=== PATIENT | male | born 1960 | race Caucasian/White ===

== ENCOUNTER 2024-02-22 16:28 | Inpatient (IN) | payer OTHER, SELFPAY ==
[2024-02-22 11:15] VITALS: BP 116/85; BMI 30.4
[2024-02-22 11:34] LABS: % Basophils 0.6 % (0-2); % Eosinophils 1.1 % (0-6); % Immature Granulocytes 0.4 % (0-0.5); % Lymphocytes 15.5 % (20.5-51.1); % Monocytes 18.3 % (1.7-9.3); % Neutrophils 64.1 % (42.2-75.2); Absolute Basophils 0.1 10^3/uL (0-0.2); Absolute Eosinophils 0.1 10^3/uL (0-0.7); Absolute Lymphocytes 1.6 10^3/uL (1.2-3.4); Absolute Monocytes 1.9 10^3/uL (0.1-0.6); Absolute Neutrophils 6.6 10^3/uL (1.4-6.5); Hematocrit 46.5 % (39.0-52.0); Hemoglobin 16.1 g/dL (13.0-18.0); Mean Corp Hgb Conc. 34.6 g/dL (33.0-37.0); Mean Corpuscular Volume 89.4 fL (80.0-94.0); Mean Platelet Volume 10.2 fL (7.4-10.4); Nucleated Red Blood Cells % 0 % (-); Platelet Count 300 10^3/uL (130-400); Red Cell Dist. Width 12.1 % (11.5-14.5); White Blood Cell Count 10.3 10^3/uL (4.8-10.8)
[2024-02-22] MEDS: NSS 1000 IV ×3 (12:11→18:43)
[2024-02-22 12:16] LABS: ALT (SGPT) 95 U/L (0-50); AST (SGOT) 48 U/L (17-59); Albumin 4.7 g/dl (3.5-5.0); Alkaline Phosphatase 67 U/L (38-126); Blood Urea Nitrogen 45 mg/dl (9-20); Calcium 10.2 mg/dl (8.4-10.2); Carbon Dioxide 21 mmol/L (22-30); Chloride 102 mmol/L (98-107); Estimated Creatinine Clearance 37 ml/min; Glucose 117 mg/dl (70-99); Lipase 393 U/L (23-300); Potassium 4.3 mmol/L (3.5-5.1); Sodium 137 mmol/L (135-145); Total Bilirubin 0.9 mg/dl (0.2-1.3); eGFR 29.21
--- NOTE | 2024-02-22 13:10 | ED.GENMED ---
History of Present Illness
General
Chief Complaint: Abdominal Symptoms
Source: patient
Exam Limitations: none
Time Seen by Provider: 02/22/24 12:32
History of Present Illness
History of Present Illness:
63-year-old male otherwise healthy presents with fatigue fevers diarrhea and dry heaves over the past 5 days. He notes he has watery stools several times a day. Is brown in color. He is developing a hemorrhoid and noticed some red blood on the
tissue when he wiped himself. He has a history of kidney stones. He does note right-sided back comfort. No known sick contacts. No other complaints at this time.
Past History
Past History
ED Past Medical History: HTN and Other (kidney stones)
Social History
Tobacco: Non-smoker
Personal:
Living: with family
Employment: Employed
Phy Exam
Physical Exam
Physical Exam:
General: Well appearing male, NAD
HEENT: NC/AT
Heart: RRR
Lungs: CTA bilaterally
ABd: soft, mildly tender to right flank
Ext: No cyanosis or edema
Skin: Warm no rashes
Course
Orders/Labs/Results
Orders:
Orders
02/22/24 11:18
Urine Culture Urgent
AZALIA Source: U
Specimen Description:
Date Specimen was Collected: 02/22/24
Time Specimen was Collected: 11:18
02/22/24 11:23
Complete Blood Count/With Diff Urgent
Comprehensive Metabolic Panel Urgent
Creatine Phosphokinase Urgent
Lipase Urgent
02/22/24 12:11
0.9% Sodium Chloride 1000 ml [Nss] 1,000 ml IV BOLUS
02/22/24 12:46
0.9% Sodium Chloride 1000 ml [Nss] 1,000 ml IV BOLUS
02/22/24 12:49
CT Abd/pel Without Iv Or Oral Urgent
Comment:
Reason For Exam: right flank pain
02/22/24 13:11
Add On- LAB Urgent
Tests Added?: CPK
02/22/24 14:30
Ampicillin/Sulbactam 3 grams IVPB NOW Ampicillin/Sulbactam 3 G [Unasyn] 3 gm 0.9% Sodium Chloride 100 ml [Nss] 100 ml IV NOW
Abnormal Lab Results
02/22/24
11:23
Absolute Neuts (auto) 6.6 H 10^3/uL
(1.4-6.5)
Absolute Monos (auto) 1.9 H 10^3/uL
(0.1-0.6)
Lymphocytes % 15.5 L %
(20.5-51.1)
Monocytes % 18.3 H %
(1.7-9.3)
Carbon Dioxide 21 L mmol/L
(22-30)
BUN 45 H mg/dl
(9-20)
Creatinine 2.4 H mg/dL
(0.7-1.3)
Glucose 117 H mg/dl
(70-99)
ALT 95 H U/L
(0-50)
Lipase 393 H U/L
(23-300)
02/22/24 11:23
02/22/24 11:23
Vital Signs
Initial and Last Documented VS:
Initial Vital Signs
Temp Pulse Resp BP Pulse Ox
98.4 F 91 16 116/85 99
02/22/24 11:15 02/22/24 11:15 02/22/24 11:15 02/22/24 11:15 02/22/24 11:15
Last Documented Vital Signs
Temp Pulse Resp BP Pulse Ox
98.4 F 91 16 116/85 93
02/22/24 11:15 02/22/24 11:15 02/22/24 11:15 02/22/24 11:15 02/22/24 12:15
MDM/Problems Addressed
Differential Diagnosis Includes:
Fatigue diarrhea with fever. Question viral illness versus electrolyte abnormality versus dehydration patient does have some right flank pain with history of kidney stones. Will check CT scan without contrast to evaluate for flank pain.
Review of labs demonstrates acute kidney injury. Creatinine today is 2.4 most recent study was in 2016 which demonstrated creatinine 1.1. Suspect likely prerenal source given the copious amounts of diarrhea he describes but CT pending to evaluate
for obstructive uropathy.
Patient will receive 2 L of fluid.
*Critical Care Note
Total Time (30-74mins, 75-104mins- exclusive of procedures): Not Applicable
Update Note
Update Note:
Patient reevaluated. Patient has acute kidney injury with a creatinine of 2.4. CT was ordered and demonstrates diverticulitis of the descending colon. Patient was hypotensive at urgent care prior to arrival here. He was given 2 L of fluid Unasyn
ordered and will admit to [facility] for diverticulitis, acute kidney injury and dehydration
ED Attending Note
-
Portions of this chart may have been created with voice recognition software.� Occasional wrong word or��sound alike� substitutions may have occurred due to the inherent limitations of voice recognition software.
Discharge Plan
Departure
Patient Disposition: Admit
Date of Disposition: 02/22/24
Time of Disposition: 14:31
Admit to: Med/Surg
Presentation/result/management discussed w/ accepting MD/DO: Hospitalist
Discharge Problem:
Diverticulitis, MONALISA (acute kidney injury)
Prescriptions:
No Action
lisinopril 10 mg Tablet
10 mg PO DAILY
ibuprofen [Advil] 200 mg Tablet
400 mg PO DAILY
rosuvastatin [Crestor] 10 mg Tablet
10 mg PO DAILY
Referrals:
Nick Stacy MD [Family Provider] -
Interventions
Interventions:
*Risk Screen - Suicide Last Done: 02/22/24 11:15
*General Assessment Last Done: 02/22/24 12:11
*Neglect/Abuse Screening Last Done: 02/22/24 11:15
ED- Fall Risk Assessment Last Done: 02/22/24 12:11
*ED COVID-19 Vaccine History Last Done: 02/22/24 12:11
OY-Spqqdp-Xnazatpthe Assessment Last Done: 02/22/24 12:11
Discharge Date and Time
Print Language: YI
[2024-02-22] MEDS: NSS IV (13:29)
[2024-02-22 14:31] LABS: Creatine Phosphokinase 62 U/L (55-170)
[2024-02-22] MEDS: UNASYN IV ×2 (15:23→22:03)
--- NOTE | 2024-02-22 16:03 | W.PN.HOSP.TC ---
Today's Communication/Plan
-
empiric abx
stool studies
aggressive IVF
Assessment / Plan
Assessment / Plan
Acute onset of diarrhea, with recurrent vomiting Friday 02/16 evening.
Pt had Tacos with chicken 3-4 hours prior to onset, but had same meal and had no issue. Over course of next 5 days symptoms persisted, he became weaker and was unable to eat
MONALISA
most likely prerenal azotemia due to diarrhea and decreased oral intake
CT scan with mild diverticulitis
1. Mild acute uncomplicated diverticulitis of the mid descending colon.
2. Normal appendix.
3. No obstructing urinary calculi or hydronephrosis.
4. Mild fusiform aneurysmal dilatation of the infrarenal abdominal aorta measuring up to 3.2 cm.
Hx of renal lithiasis
P:IVF
empiric abx
stool studies
full code
see dictated note
Anticipated Discharge: 24 - 48 hours
Subjective/Interval History
-
Date of Service: February 22, 2024
Diarrhea, fevers, weakness worsening since onset Sunday evening, 02/16
Objective Data
-
Labs:
Laboratory Results
02/22/24
11:23
WBC 10.3
Hgb 16.1
Hct 46.5
Plt Count 300
Sodium 137
Potassium 4.3
Chloride 102
Carbon Dioxide 21 L
BUN 45 H
Creatinine 2.4 H
Glucose 117 H
Calcium 10.2
Total Bilirubin 0.9
AST 48
ALT 95 H
Alkaline Phosphatase 67
Vital Signs:
Vital Signs
Temp Pulse Resp BP Pulse Ox
98.4 F 91 16 116/85 93
02/22/24 11:15 02/22/24 11:15 02/22/24 11:15 02/22/24 11:15 02/22/24 12:15
Review of Systems
-
History Source: Patient and Family ( at bedside)
Constitutional: Denies Fever
EENT: Reports No Symptoms Reported
Respiratory: Reports No Symptoms
Cardiac: Reports No Symptoms
Abdomen/GI: Reports Nausea, Vomiting, Diarrhea and Other (hemorhoidal bleed)
Physical Exam
-
General: Well Developed, Well Nourished and No Apparent Distress
HEENT: Normocephalic, Atraumatic and Moist Mucous Membranes
Respiratory: Clear to Auscultation; Negative Wheezes, Rales or Rhonchi
Cardiac: Regular Rhythm and S1/S2
GI: Nontender and Nondistended
Musculoskeletal: No Clubbing, No Cyanosis and No Edema
Skin: Warm and Dry
Neuro: Awake, Alert and Oriented
Psych: Calm and Intact Judgement/Insight
[2024-02-22 18:12] VITALS: BP 136/81
[2024-02-22 18:23] VITALS: BP 141/83
[2024-02-22 18:24] VITALS: BMI 28.5
[2024-02-22] MEDS: HEPARIN 5000 UNITS SC (22:03)
[2024-02-22 23:00] VITALS: BP 115/66
[2024-02-23] MEDS: UNASYN IV ×4 (03:46→20:51)
[2024-02-23] MEDS: NSS 1000 IV ×2 (03:46→13:46)
[2024-02-23 06:00] VITALS: BMI 28.6
[2024-02-23 07:03] VITALS: BP 118/70
[2024-02-23 07:04] LABS: % Basophils 0.3 % (0-2); % Eosinophils 1.4 % (0-6); % Immature Granulocytes 0.5 % (0-0.5); % Lymphocytes 21.4 % (20.5-51.1); % Monocytes 16.5 % (1.7-9.3); % Neutrophils 59.9 % (42.2-75.2); Absolute Eosinophils 0.1 10^3/uL (0-0.7); Absolute Lymphocytes 1.4 10^3/uL (1.2-3.4); Absolute Monocytes 1.1 10^3/uL (0.1-0.6); Hematocrit 35.3 % (39.0-52.0); Mean Corp Hgb Conc. 34.8 g/dL (33.0-37.0); Mean Corpuscular Hgb 31.1 pg (27.0-31.0); Mean Corpuscular Volume 89.1 fL (80.0-94.0); Mean Platelet Volume 10.3 fL (7.4-10.4); Nucleated Red Blood Cells % 0 % (-); Platelet Count 198 10^3/uL (130-400); Red Blood Cell Count 3.96 10^6/uL (4.70-6.10); White Blood Cell Count 6.7 10^3/uL (4.8-10.8)
[2024-02-23 07:18] LABS: Blood Urea Nitrogen 26 mg/dl (9-20); Calcium 8.2 mg/dl (8.4-10.2); Carbon Dioxide 20 mmol/L (22-30); Chloride 112 mmol/L (98-107); Estimated Creatinine Clearance 78 ml/min; Glucose 81 mg/dl (70-99); Lipase 365 U/L (23-300); Potassium 3.8 mmol/L (3.5-5.1); Sodium 138 mmol/L (135-145); eGFR > 60.00
[2024-02-23] MEDS: HEPARIN 5000 UNITS SC ×2 (08:26→20:51)
[2024-02-23 08:29] LABS: Hemoglobin 12.3 g/dL (13.0-18.0)
--- NOTE | 2024-02-23 08:51 | W.PN.HOSP.TC ---
Today's Communication/Plan
-
GI consult
slow IVF
Fe studies, check labs
Assessment / Plan
Assessment / Plan
Acute onset of diarrhea, with recurrent vomiting Friday 02/16 evening.
Pt had Tacos with chicken 3-4 hours prior to onset, but had same meal and had no issue. Over course of next 5 days symptoms persisted, he became weaker and was unable to eat.
Still no appetite, but nausea has resolved. Symptoms are more consistent with enteric pathogen than acute diverticulitis, but would like to have input from GI
MONALISA
most likely prerenal azotemia due to diarrhea and decreased oral intake
markedly improved with IVF past 24 hrs. BUN/Creat 45/2.4-->26/1.0
will slow IVF and recheck tomorrow
Drop in Hgb 16.1-->12.3
most likely dilutional, but will recheck in AM and request GI input. Check Fe studies
Mild elevated Lipase
393-->365. Will follow
CT scan with mild diverticulitis
1. Mild acute uncomplicated diverticulitis of the mid descending colon.
2. Normal appendix.
3. No obstructing urinary calculi or hydronephrosis.
4. Mild fusiform aneurysmal dilatation of the infrarenal abdominal aorta measuring up to 3.2 cm.
Hx of renal lithiasis
P:slow IVF
empiric abx
stool studies still pending. C.Diff negative
full code
Anticipated Discharge: 24 - 48 hours
Subjective/Interval History
-
Date of Service: February 23, 2024
Still with diarrhea, no appetite, but is not nauseous this morning
Objective Data
-
Labs:
Laboratory Results
02/23/24
05:58
WBC 6.7
Hgb 12.3 L D
Hct 35.3 L
Plt Count 198 D
Sodium 138
Potassium 3.8
Chloride 112 H
Carbon Dioxide 20 L
BUN 26 H
Creatinine 1.0
Glucose 81
Calcium 8.2 L D
Vital Signs:
Vital Signs
Temp Pulse Resp BP Pulse Ox
98.1 F 69 18 118/70 97
02/23/24 07:03 02/23/24 07:03 02/23/24 07:03 02/23/24 07:03 02/23/24 07:03
I&O
02/22/24 02/23/24 02/24/24
06:59 06:59 06:59
Intake Total 1959
Balance 1959
Review of Systems
-
History Source: Patient and Coordinated Provider
Constitutional: Denies Fever (fever, chills at onset of symptoms, none currently)
EENT: Reports No Symptoms Reported
Respiratory: Reports No Symptoms
Cardiac: Reports No Symptoms
Abdomen/GI: Reports Diarrhea and Other (hemorhoidal bleed); Denies Nausea (resolved, but no appetite) or Vomiting (resolved)
Physical Exam
-
General: Well Developed, Well Nourished and No Apparent Distress
HEENT: Normocephalic, Atraumatic and Moist Mucous Membranes
Respiratory: Clear to Auscultation; Negative Wheezes, Rales or Rhonchi
Cardiac: Regular Rhythm and S1/S2
GI: Nontender and Nondistended
Musculoskeletal: No Clubbing, No Cyanosis and No Edema
Skin: Warm and Dry
Neuro: Awake, Alert and Oriented
Psych: Calm and Intact Judgement/Insight
--- NOTE | 2024-02-23 11:20 | CON.GI ---
Addendum entered and electronically signed by Lai Pinedo MD 02/23/24 13:48:
I saw and examined the patient.
The PA's note was reviewed and I agree with the note.
Comment:
63 year old male with HTN, kidney stones, and h/o diverticulitis who p/w diarrhea and abdominal pain.
Impression / Rec:
1. Diarrhea - acute, had associated nausea w/o vomiting and chills/sweats but unknown if he actually had objective fever. No sick contacts, recent travel or antibiotics. Had pre-renal MONALISA from diarrhea which has resolved with IVF. CT abd/pel w/o
IV or oral contrast showed mild acute uncomplicated diverticulitis in the mid descending colon. C. diff -ve, other stool tests pending. Last colonoscopy was in 2020. Pt's history is most consistent with infectious diarrhea, although no other
family are having same symptoms. On Abx, feeling better/diarrhea slowing down. Follow stool studies and continue with abx for now.
Original Note:
Consultation
-
Date/Time Consultation Requested: 02/23/24 0857
Date/Time Consultation Performed: 02/23/24 1120
Requesting Provider: Dr Briceno
Performing Provider: Dr Pinedo / Yamilet Eduardo PA-C
Reason for Consultation: diverticulitis
Medical History
Chief Complaint / HPI
Chief Complaint: abdominal pain, diarrhea
History of Present Illness:
This is a 63 year old male with a past medical history of HTN, kidney stones, and diverticulitis who presents for diarrhea and abdominal pain for the past 6 days. He had chills and sweats but did not check his temperature. No sick contacts, recent
travel or antibiotics. The diarrhea was watery, brown, occurring multiple times a day. Pain was felt 'all over' but worse in the right lower quadrant. He states he felt like he was developing a hemorrhoid and saw small amounts of blood on the toilet
paper with wiping. +weakness and nausea, no vomiting. On arrival to ER, labs showed elevated BUN and creatinine (45 and 2.4). CT abdomen/pelvis showed normal appendix and a mild acute uncomplicated diverticulitis in the mid descending colon. He was
started on antibiotics (Unasyn) and given IV fluids and patient reports he is feeling better today. He has had diverticulitis in the past and has required hospitalization for this but never surgery in the past. He cannot recall exactly but states
his last episode of diverticulitis was ~7 years ago. This does feel somewhat different to him than previous episodes of diverticulitis. He had a colonoscopy in [address] Oliveira which showed diverticulosis in the entire colon, internal hemorrhoids
and a small rectal hyperplastic polyp. There is no family history of colon cancer.
Today's labs reviewed: WBC 6.7, Hgb 12.3, MCV 89.1, platelets 198, BUN 26, creatinine 1.0 (kidney function improved from yesterday). Stool studies are negative for C diff, remaining stool cultures pending.
Past Medical History
Past Medical History: HTN and Other (kidney stones, diverticulitis)
Past Surgical History: None
Social History
Tobacco: Non-Smoker
Alcohol: Occasional (6 beers/week)
Drug: None
Personal:
Living: With Family
Employment: Employed
Family History
Family History: Reviewed & Not Pertinent (no family history of GI malignancies or IBD)
Allergies / Home Medications
Allergy/AdvReac Type Severity Reaction Status Date / Time
No Known Allergies Allergy Verified 02/22/24 11:17
�Medication �Instructions �Recorded
ibuprofen 200 mg tablet (Advil) 400 mg PO DAILY 02/22/24
lisinopril 10 mg tablet 10 mg PO DAILY 02/22/24
rosuvastatin 10 mg tablet 10 mg PO DAILY 02/22/24
Review of Systems
-
History Source: Patient
All other systems: A 12 pt ROS was Negative except as stated above in HPI
Vital Signs
Temp Pulse Resp BP Pulse Ox
98.1 F 69 18 118/70 97
02/23/24 07:03 02/23/24 07:03 02/23/24 07:03 02/23/24 07:03 02/23/24 07:03
Physical Exam
Exam
General: Well Developed, Well Nourished and No Apparent Distress
Respiratory: Clear
Cardiac: Regular Rhythm
GI: Soft, Non Tender, Non Distended and Normal Bowel Sounds
Skin: Warm and Dry
Neuro: AO x 3
Psych: Calm
Results
WBC 6.7 10^3/uL (4.8-10.8) 02/23/24 05:58
Hgb 12.3 g/dL (13.0-18.0) L D 02/23/24 05:58
Hct 35.3 % (39.0-52.0) L 02/23/24 05:58
MCV 89.1 fL (80.0-94.0) 02/23/24 05:58
Plt Count 198 10^3/uL (130-400) D 02/23/24 05:58
Absolute Neuts (auto) 4.0 10^3/uL (1.4-6.5) 02/23/24 05:58
Sodium 138 mmol/L (135-145) 02/23/24 05:58
Potassium 3.8 mmol/L (3.5-5.1) 02/23/24 05:58
Chloride 112 mmol/L (98-107) H 02/23/24 05:58
Carbon Dioxide 20 mmol/L (22-30) L 02/23/24 05:58
BUN 26 mg/dl (9-20) H 02/23/24 05:58
Creatinine 1.0 mg/dL (0.7-1.3) 02/23/24 05:58
Calcium 8.2 mg/dl (8.4-10.2) L D 02/23/24 05:58
Total Bilirubin 0.9 mg/dl (0.2-1.3) 02/22/24 11:23
AST 48 U/L (17-59) 02/22/24 11:23
ALT 95 U/L (0-50) H 02/22/24 11:23
Alkaline Phosphatase 67 U/L (38-126) 02/22/24 11:23
Lipase 365 U/L (23-300) H 02/23/24 05:58
Diagnostic Image Results:
CT Abdomen/Pelvis 02/22/24:
1. Mild acute uncomplicated diverticulitis of the mid descending colon.
2. Normal appendix.
3. No obstructing urinary calculi or hydronephrosis.
4. Mild fusiform aneurysmal dilatation of the infrarenal abdominal aorta measuring up to 3.2 cm.
Prior GI Procedures:
EGD:
Colonoscopy:
06/20/21, Dr. Oliveira
Diverticulosis in the entire examined colon.
- Internal hemorrhoids.
- One diminutive polyp in the rectum, removed with a
jumbo cold forceps. Resected and retrieved. PATH: Hyperplastic polyp.
Assessment / Plan
-
63 year old male with HTN, kidney stones, and diverticulitis who presents for diarrhea and abdominal pain for the past 6 days. He had chills and sweats but did not check his temperature. No sick contacts, recent travel or antibiotics. The diarrhea
was watery, brown, occurring multiple times a day. Pain was felt 'all over' but worse in the right lower quadrant. He states he felt like he was developing a hemorrhoid and saw small amounts of blood on the toilet paper with wiping. +weakness and
nausea, no vomiting. On arrival to ER, labs showed elevated BUN and creatinine (45 and 2.4). CT abdomen/pelvis showed normal appendix and a mild acute uncomplicated diverticulitis in the mid descending colon. He was started on antibiotics (Unasyn)
and given IV fluids and patient reports he is feeling better today. He has had diverticulitis in the past and has required hospitalization for this but never surgery in the past. He cannot recall exactly but states his last episode of diverticulitis
was ~7 years ago. This does feel somewhat different to him than previous episodes of diverticulitis. He had a colonoscopy in [address] Oliveira which showed diverticulosis in the entire colon, internal hemorrhoids and a small rectal hyperplastic
polyp. There is no family history of colon cancer.
Today's labs reviewed: WBC 6.7, Hgb 12.3, MCV 89.1, platelets 198, BUN 26, creatinine 1.0 (kidney function improved from yesterday). Stool studies are negative for C diff, remaining stool cultures pending.
IMPRESSION / PLAN:
Acute diverticulitis, mild/uncomplicated
- continue IV antibiotics (Unasyn)
- continue IV fluids
- analgesics, antiemetics PRN, per hospitalist
- outpatient follow-up with Dr. Oliveira
Diarrhea, rule out infectious etiology
- C difficile negative
- remaining stool cultures pending
-
-
Thank you for consultation and allowing me to participate in the patient's care. Please call the rn liaison GI physician during the after hours with any questions or concerns.
--- NOTE | 2024-02-23 13:57 | CM ---
Reviewed chart, met with patient to obtain information for assessment. Patient stated that he lives in a two story home with his . There are two steps to enter. He described himself as independent with his ADLS and personal care, dressing,
bathing and toileting. He ambulates without use of an assistive device. 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 He drives and can get himself to his appointments and do all of his own shopping. Patient is still
working.
He denied any DME in his home.
He has never had VN services.
He has not been to a SNF.
Patient has a prescription plan and uses [facility] in [place] for all of his medications.
His PCP is, Nick Stacy.
Patient stated that he feels that he is at his baseline level of functioning and confirmed that he is feeling a lot better. He stated that his will transport home when he is cleared for discharge.
Plan: Case management will continue to follow and assist with discharge planning. Home with when stable medically.
[2024-02-23 15:13] VITALS: BP 132/83
[2024-02-23 23:00] VITALS: BP 143/94
[2024-02-24] MEDS: NSS 1000 IV (00:04)
[2024-02-24] MEDS: UNASYN IV ×2 (05:16→10:02)
[2024-02-24 06:00] VITALS: BMI 28.9
[2024-02-24 06:42] LABS: % Basophils 0.3 % (0-2); % Eosinophils 2.2 % (0-6); % Immature Granulocytes 0.4 % (0-0.5); % Lymphocytes 22.6 % (20.5-51.1); % Monocytes 9.8 % (1.7-9.3); % Neutrophils 64.7 % (42.2-75.2); Absolute Eosinophils 0.2 10^3/uL (0-0.7); Absolute Lymphocytes 1.6 10^3/uL (1.2-3.4); Absolute Monocytes 0.7 10^3/uL (0.1-0.6); Absolute Neutrophils 4.4 10^3/uL (1.4-6.5); Hematocrit 32.4 % (39.0-52.0); Hemoglobin 11.6 g/dL (13.0-18.0); Mean Corp Hgb Conc. 35.8 g/dL (33.0-37.0); Mean Corpuscular Hgb 30.8 pg (27.0-31.0); Mean Corpuscular Volume 85.9 fL (80.0-94.0); Mean Platelet Volume 10.3 fL (7.4-10.4); Nucleated Red Blood Cells % 0 % (-); Platelet Count 215 10^3/uL (130-400); Red Blood Cell Count 3.77 10^6/uL (4.70-6.10); Red Cell Dist. Width 11.8 % (11.5-14.5); White Blood Cell Count 6.9 10^3/uL (4.8-10.8)
[2024-02-24 07:00] VITALS: BP 140/92
[2024-02-24 07:13] LABS: Blood Urea Nitrogen 15 mg/dl (9-20); Calcium 8.3 mg/dl (8.4-10.2); Carbon Dioxide 22 mmol/L (22-30); Chloride 111 mmol/L (98-107); Estimated Creatinine Clearance 87 ml/min; Glucose 82 mg/dl (70-99); Iron 101 ug/dl (49-181); Lipase 247 U/L (23-300); Magnesium 1.9 mg/dl (1.6-2.3); Potassium 3.5 mmol/L (3.5-5.1); Sodium 139 mmol/L (135-145); eGFR > 60.00
[2024-02-24 07:23] LABS: Percent Saturation 45 % (20-50); Total Iron Binding Capacity 220 ug/dl (261-462)
[2024-02-24 08:12] LABS: Vitamin B12 697 pg/ml (239-931)
[2024-02-24] MEDS: HEPARIN 5000 UNITS SC (08:20)
--- NOTE | 2024-02-24 10:19 | W.PN.HOSP.TC ---
Today's Communication/Plan
-
dc to home
Assessment / Plan
Assessment / Plan
Acute onset of diarrhea, with recurrent vomiting Friday 02/16 evening.
Pt had Tacos with chicken 3-4 hours prior to onset, but had same meal and had no issue. Over course of next 5 days symptoms persisted, he became weaker and was unable to eat.
appetite back to normal, but nausea has resolved. Symptoms are more consistent with enteric pathogen than acute diverticulitis, but would like to have input from GI
MONALISA
most likely prerenal azotemia due to diarrhea and decreased oral intake
markedly improved with IVF past 24 hrs. BUN/Creat 45/2.4-->26/1.0
will slow IVF and recheck tomorrow
Drop in Hgb 16.1-->12.3-->11.6
most likely dilutional, but will recheck in AM and request GI input. Check Fe studies
Mild elevated Lipase
393-->365-->247. Will follow
CT scan with mild diverticulitis
1. Mild acute uncomplicated diverticulitis of the mid descending colon.
2. Normal appendix.
3. No obstructing urinary calculi or hydronephrosis.
4. Mild fusiform aneurysmal dilatation of the infrarenal abdominal aorta measuring up to 3.2 cm.
Hx of renal lithiasis
P:reviewed with Dr. Pinedo
empiric abx
stool WBC neg C.Diff negative
dc to home
see dictated note
full code
More than 30 minutes spent in discharge including
Final examination of the patient
Summarizing hospital stay
Instructions for continuing care to all relevant caregivers
Preparation of discharge records, prescriptions, and referral forms
Total time spent (in minutes): 45
Anticipated Discharge: Today
Subjective/Interval History
-
Date of Service: February 24, 2024
diarrhea resolved, feels well, tolerating diet
Objective Data
-
Labs:
Laboratory Results
02/24/24
05:54
WBC 6.9
Hgb 11.6 L
Hct 32.4 L
Plt Count 215
Sodium 139
Potassium 3.5
Chloride 111 H
Carbon Dioxide 22
BUN 15
Creatinine 0.9
Glucose 82
Calcium 8.3 L
Vital Signs:
Vital Signs
Temp Pulse Resp BP Pulse Ox
98.4 F 75 15 140/92 96
02/24/24 07:00 02/24/24 07:00 02/24/24 07:00 02/24/24 07:00 02/24/24 07:00
I&O
02/23/24 02/24/24 02/25/24
06:59 06:59 06:59
Intake Total 1959
Balance 1959
Review of Systems
-
History Source: Patient and Coordinated Provider
Constitutional: Denies Fever (fever, chills at onset of symptoms, none currently)
EENT: Reports No Symptoms Reported
Respiratory: Reports No Symptoms
Cardiac: Reports No Symptoms
Abdomen/GI: Reports Diarrhea and Other (hemorhoidal bleed); Denies Nausea (resolved, appetite better) or Vomiting (resolved)
Physical Exam
-
General: Well Developed, Well Nourished and No Apparent Distress
HEENT: Normocephalic, Atraumatic and Moist Mucous Membranes
Respiratory: Clear to Auscultation; Negative Wheezes, Rales or Rhonchi
Cardiac: Regular Rhythm and S1/S2
GI: Nontender and Nondistended
Musculoskeletal: No Clubbing, No Cyanosis and No Edema
Skin: Warm and Dry
Neuro: Awake, Alert and Oriented
Psych: Calm and Intact Judgement/Insight
--- NOTE | 2024-02-24 12:14 | W.DS.TRANS ---
DC Summary - New Accounts Representative
-
Discharge Instructions:
Discharge Diagnosis/Procedures Acute Gastroenteritis, bleeding hemorrhoid
Diet Regular
Activity No restrictions
Driving Restrictions As prior to admission
Bathing Restrictions None
Blood Work cbc, bmp
Instructions:
Stand-Alone Forms:
Changes to Home Medications: Yes
Discharge Medications:
DC Medications w/original date entered in [employer]
lisinopril 10 mg tablet 10 mg PO DAILY Blood Pressure 02/22/24
rosuvastatin 10 mg tablet 10 mg PO DAILY High Cholesterol 02/22/24
levofloxacin 500 mg tablet 500 mg PO DAILY 7 days #7 tabs 02/24/24
metronidazole 500 mg tablet 500 mg PO Q8H 7 days #21 tabs 02/24/24
Home Medication Changes
stop Motrin
Levaquin and Flagyl for next 7 days
Pending Results: Yes
Additional Pending Results:
final stool culture results
--- NOTE | 2024-02-24 12:21 | W.PN.GI.CBS2 ---
Today's Communication / Plan
-
ok w/ d/c home, f/u with GI OP
Assessment / Plan
-
63 year old male with HTN, kidney stones, and diverticulitis who presents for diarrhea and abdominal pain for the past 6 days. He had chills and sweats but did not check his temperature. No sick contacts, recent travel or antibiotics. The diarrhea
was watery, brown, occurring multiple times a day. Pain was felt 'all over' but worse in the right lower quadrant. He states he felt like he was developing a hemorrhoid and saw small amounts of blood on the toilet paper with wiping. +weakness and
nausea, no vomiting. On arrival to ER, labs showed elevated BUN and creatinine (45 [address]4). CT abdomen/pelvis showed normal appendix and a mild acute uncomplicated diverticulitis in the mid descending colon. He was started on antibiotics (Unasyn)
and given IV fluids and patient reports he is feeling better today. He has had diverticulitis in the past and has required hospitalization for this but never surgery in the past. He cannot recall exactly but states his last episode of diverticulitis
was ~7 years ago. This does feel somewhat different to him than previous episodes of diverticulitis. He had a colonoscopy in [address] Oliveira which showed diverticulosis in the entire colon, internal hemorrhoids and a small rectal hyperplastic
polyp. There is no family history of colon cancer.
Today's labs reviewed: WBC 6.7, Hgb 12.3, MCV 89.1, platelets 198, BUN 26, creatinine 1.0 (kidney function improved from yesterday). Stool studies are negative for C diff, remaining stool cultures pending.
IMPRESSION / PLAN:
1. Diarrhea - acute, had associated nausea w/o vomiting and chills/sweats but unknown if he actually had objective fever. No sick contacts, recent travel or antibiotics. Had pre-renal MONALISA from diarrhea which has resolved with IVF. CT abd/pel w/o
IV or oral contrast showed mild acute uncomplicated diverticulitis in the mid descending colon. C. diff -ve, salmonella/shigella/aeromonas/campylobacter -ve. No leukocytes in stool. ? viral, although her spouse is w/o symptoms. Feeling better,
had formed stoo, MONALISA resolved, tolerating diet. Ok with d/c home, f/u with GI OP for possible repeat colonoscopy w biopsies.
Total Time Spent with Patient (in minutes): 35
Subjective
Subjective
Date of Service: February 24, 2024
feeling better, had formed BM
Objective
Data Reviewed
Laboratory Data:
Laboratory Results
02/24/24 05:54
02/24/24 05:54
Laboratory Results
Magnesium 1.9 mg/dl (1.6-2.3) 02/24/24 05:54
Total Bilirubin 0.9 mg/dl (0.2-1.3) 02/22/24 11:23
AST 48 U/L (17-59) 02/22/24 11:23
ALT 95 U/L (0-50) H 02/22/24 11:23
Alkaline Phosphatase 67 U/L (38-126) 02/22/24 11:23
Lipase 247 U/L (23-300) 02/24/24 05:54
Vital Signs and I&O:
Vital Signs
Temp Pulse Resp BP Pulse Ox
98.4 F 75 15 140/92 96
02/24/24 07:00 02/24/24 07:00 02/24/24 07:00 02/24/24 07:00 02/24/24 07:00
I&O
02/23/24 02/24/24 02/25/24
06:59 06:59 06:59
Intake Total 1959
Balance 1959
== END 2024-02-24 12:48 | disposition home or self-care (01) | DRG 392 ==
LOC: 3 WEST ACU 16:28
PROVIDERS: Student in an Organized Health Care Education/Training Program; ADMITTING PHYSICIAN Internal Medicine; CONSULT PHYSICIAN Internal Medicine Gastroenterology; EMERGENCY PHYSICIAN Emergency Medicine; FAMILY PHYSICIAN Family Medicine
DX: A09 Infectious gastroenteritis and colitis, unspecified (principal); K57.32 Diverticulitis of large intestine without perforation or abscess without bleeding; N17.9 Acute kidney failure, unspecified; I10 Essential (primary) hypertension; D64.9 Anemia, unspecified; R79.89 Other specified abnormal findings of blood chemistry; E86.0 Dehydration; E78.5 Hyperlipidemia, unspecified; K64.9 Unspecified hemorrhoids; Z79.899 Other long term (current) drug therapy; Z87.442 Personal history of urinary calculi
CPT/HCPCS: 74176; 80048; 80053; 82550; 82607; 82728; 82746; 83540; 83550; 83690; 83735; 85025; 87045; 87046; 87086; 87324; 87427; 87449; 89055; 96361; 96365; 99284

== ENCOUNTER 2024-02-26 09:47 | Emergency (ER) | payer OTHER, SELFPAY ==
[2024-02-26 09:56] VITALS: BP 158/86
--- NOTE | 2024-02-26 10:18 | ED.GENMED ---
History of Present Illness
General
Chief Complaint: Flank Pain
Source: patient
Exam Limitations: none
Time Seen by Provider: 02/26/24 10:05
History of Present Illness
History of Present Illness:
63-year-old male presents complaining the onset of left flank pain last night. It was sudden sharp in nature with associated nausea. He has a history of kidney stones and this feels similar. He was recently discharged from the hospital 2 days ago
for acute kidney injury secondary to dehydration from gastroenteritis. He was found to have diverticulitis and placed on Levaquin and Flagyl. He notes he has difficulty urinating with darker colored urine today. No fevers. No other complaints at
this time
Past History
Past History
ED Past Medical History: HTN and Other (kidney stones)
Social History
Tobacco: Non-smoker
Personal:
Living: with family
Employment: Employed
Phy Exam
Physical Exam
Physical Exam:
General: Well-appearing male no acute respiratory distress
HEENT: Normocephalic atraumatic
Heart: Regular rate and rhythm no murmur
Lungs: Clear no wheeze
Abdomen soft tender to the left costovertebral angle. No significant tenderness left lower quadrant no guarding or rebound normal bowel sounds
Extremities: No cyanosis
Course
Orders/Labs/Results
Orders:
Orders
02/26/24 10:15
CT Abd/pel Without Iv Or Oral Urgent
Comment:
Reason For Exam: left flank pain
02/26/24 10:16
0.9% Sodium Chloride 1000 ml [Nss] 1,000 ml IV BOLUS
Ketorolac [Toradol] 15 mg IV NOW STA
Ondansetron Injectable [Zofran] 4 mg IV NOW STA
02/26/24 10:36
Basic Metabolic Panel Urgent
Complete Blood Count/With Diff Urgent
Urinalysis Reflex To Culture Urgent
Date Specimen was Collected: 02/26/24
Time Specimen was Collected: 10:19
Urine Microscopic Reflex Cult Urgent
Abnormal Lab Results
02/26/24
10:36
WBC 11.2 H 10^3/uL
(4.8-10.8)
RBC 3.88 L 10^6/uL
(4.70-6.10)
Hgb 12.1 L g/dL
(13.0-18.0)
Hct 32.9 L %
(39.0-52.0)
MCH 31.2 H pg
(27.0-31.0)
Abs Immat Gran (auto) 0.1 H 10^3/uL
(0-0.05)
Absolute Neuts (auto) 8.9 H 10^3/uL
(1.4-6.5)
Absolute Lymphs (auto) 1.0 L 10^3/uL
(1.2-3.4)
Absolute Monos (auto) 1.2 H 10^3/uL
(0.1-0.6)
Immature Gran % 0.9 H %
(0-0.5)
Neutrophils % 79.7 H %
(42.2-75.2)
Lymphocytes % 8.6 L %
(20.5-51.1)
Monocytes % 10.5 H %
(1.7-9.3)
Glucose 104 H mg/dl
(70-99)
Urine Ketones Trace A
(Negative)
Ur Occult Blood Reflex 4+ A
(Negative)
Leukocyte Esterase Rfl Trace A
(Negative)
Urine RBC 11-15 A /HPF
(0-2)
02/26/24 10:36
02/26/24 10:36
Vital Signs
Initial and Last Documented VS:
Initial Vital Signs
Temp Pulse Resp BP Pulse Ox
98.2 F 68 16 158/86 96
02/26/24 09:56 02/26/24 09:56 02/26/24 09:56 02/26/24 09:56 02/26/24 09:56
Last Documented Vital Signs
Temp Pulse Resp BP Pulse Ox
98.2 F 68 16 158/86 96
02/26/24 09:56 02/26/24 09:56 02/26/24 09:56 02/26/24 09:56 02/26/24 09:56
MDM/Problems Addressed
Differential Diagnosis Includes:
Left flank pain. Consider exacerbation diverticulitis versus renal colic versus kidney stone versus pyelonephritis.
I reviewed prior hospital records. He was discharged from the hospital 2 days ago after gastroenteritis and diverticulitis. He was placed on Levaquin and Flagyl. Unlikely to be kidney infection. I reviewed prior CT scan which does demonstrate
multiple renal calculi on the left side. Repeat CT scan performed today without contrast to evaluate for active kidney stone. Labs pending to evaluate for any difference in his kidney function. Fluids ordered Zofran ordered. Last hospital
recorded creatinine was 0.9. Toradol ordered
*Critical Care Note
Total Time (30-74mins, 75-104mins- exclusive of procedures): Not Applicable
Update Note
Update Note:
CT scan demonstrates 1 mm stone in the distal left ureter with hydronephrosis. No signs of urinary tract infection. Patient feeling much better after intervention with fluids Toradol and Zofran. Recommended Motrin at home and hydration. Stable
for discharge with follow-up. He was given a urine strainer
ED Attending Note
-
Portions of this chart may have been created with voice recognition software.� Occasional wrong word or��sound alike� substitutions may have occurred due to the inherent limitations of voice recognition software.
Discharge Plan
Departure
Patient Disposition: Home (Routine Discharge)
Date of Disposition: 02/26/24
Time of Disposition: 12:04
Patient with high blood pressure during this ER visit?: No
Discharge Problem:
Kidney stone
Instructions: Kidney Stones (DC)
Prescriptions:
No Action
lisinopril 10 mg Tablet
10 mg PO DAILY
rosuvastatin 10 mg Tablet
10 mg PO DAILY
levofloxacin 500 mg tablet
500 mg PO DAILY 7 Days Qty: 7 0RF
metronidazole 500 mg tablet
500 mg PO Q8H 7 Days Qty: 21 0RF
Referrals:
Nick Stacy MD [Family Provider] -
Leonid Haynes MD [Active] -
Activity Restrictions/Additional Instructions:
Continue drinking plenty of fluids. Use ibuprofen if needed for pain. This is a stone that should pass on its own. Return here for fever vomiting or intractable pain. Follow-up with urology otherwise
Interventions
Interventions:
*Risk Screen - Suicide Last Done: 02/26/24 10:38
*General Assessment Last Done: 02/26/24 09:56
*Neglect/Abuse Screening Last Done: 02/26/24 10:38
*ED COVID-19 Vaccine History Last Done: 02/26/24 09:56
SD-Xqyizg-Okxtlwtsjd Assessment Last Done: 02/26/24 10:38
Discharge Date and Time
Print Language: OCCITAN
[2024-02-26] MEDS: NSS 1000 IV (10:32)
[2024-02-26] MEDS: ZOFRAN 4 MG IV (10:32)
[2024-02-26] MEDS: TORADOL 15 MG IV (10:32)
[2024-02-26 10:33] VITALS: BMI 29.6
[2024-02-26 11:03] LABS: % Basophils 0.2 % (0-2); % Eosinophils 0.1 % (0-6); % Immature Granulocytes 0.9 % (0-0.5); % Lymphocytes 8.6 % (20.5-51.1); % Monocytes 10.5 % (1.7-9.3); % Neutrophils 79.7 % (42.2-75.2); Absolute Immature Granulocytes 0.1 10^3/uL (0-0.05); Absolute Monocytes 1.2 10^3/uL (0.1-0.6); Absolute Neutrophils 8.9 10^3/uL (1.4-6.5); Hematocrit 32.9 % (39.0-52.0); Hemoglobin 12.1 g/dL (13.0-18.0); Mean Corp Hgb Conc. 36.8 g/dL (33.0-37.0); Mean Corpuscular Hgb 31.2 pg (27.0-31.0); Mean Corpuscular Volume 84.8 fL (80.0-94.0); Mean Platelet Volume 10.4 fL (7.4-10.4); Nucleated Red Blood Cells % 0 % (-); Platelet Count 251 10^3/uL (130-400); Red Blood Cell Count 3.88 10^6/uL (4.70-6.10); Red Cell Dist. Width 11.9 % (11.5-14.5); White Blood Cell Count 11.2 10^3/uL (4.8-10.8)
[2024-02-26 11:05] LABS: Urine Albumin Negative (Neg - Trace); Urine Bilirubin Negative (Negative); Urine Character Clear (Clear); Urine Color Yellow; Urine Glucose Negative (Negative); Urine Ketone Trace (Negative); Urine Leukocyte Trace (Negative); Urine Nitrite Negative (Negative); Urine Occult Blood 4+ (Negative); Urine Urobilinogen Negative (Neg - 1+)
[2024-02-26 11:21] LABS: Blood Urea Nitrogen 15 mg/dl (9-20); Carbon Dioxide 27 mmol/L (22-30); Chloride 105 mmol/L (98-107); Estimated Creatinine Clearance 78 ml/min; Glucose 104 mg/dl (70-99); Sodium 139 mmol/L (135-145); eGFR > 60.00
[2024-02-26 12:32] VITALS: BP 138/68
== END 2024-02-26 12:33 | disposition home or self-care (01) ==
LOC: EMR 09:47
PROVIDERS: Physician Assistant; EMERGENCY PHYSICIAN Emergency Medicine; FAMILY PHYSICIAN Family Medicine
DX: N13.2 Hydronephrosis with renal and ureteral calculous obstruction (principal); R11.0 Nausea; I10 Essential (primary) hypertension; Z87.442 Personal history of urinary calculi; K57.92 Diverticulitis of intestine, part unspecified, without perforation or abscess without bleeding
CPT/HCPCS: 99284; 96374; 96375; 96361; 74176; 80048; 81003; 81015; 85025